=== PATIENT | male | born 1950 | race Caucasian/White ===

== ENCOUNTER 2022-06-22 22:35 | Inpatient (IN) | payer OTHER ==
[~2022-06-22] VITALS: Ht 167.6 cm; Wt 68.0 kg
[2022-06-22] MEDS ORDERED: ALBUTEROL SULFATE 2.5 MG/3 ML NEBU NEB ONE (22:45)
[2022-06-22] MEDS ORDERED: IPRATROPIUM BROMIDE 0.5 MG/2.5 ML NEBU NEB ONE (22:45)
[2022-06-22] MEDS ORDERED: methylPREDNISolone SOD SUCC 125 MG/2 ML VIAL IV ONE (22:45)
[2022-06-22] MEDS ORDERED: methylPREDNISolone SOD SUCC 125 MG/2 ML VIAL ONE (22:47)
[2022-06-22] MEDS ORDERED: ALBUTEROL SULFATE 2.5 MG/3 ML NEBU ONE ×2 (22:49→23:27)
[2022-06-22] MEDS ORDERED: IPRATROPIUM BROMIDE 0.5 MG/2.5 ML NEBU ONE (22:49)
[2022-06-22] MEDS ORDERED: LOSA100T31 PO (22:56)
[2022-06-22] MEDS ORDERED: ACET-2154 PO (22:56)
[2022-06-22] MEDS ORDERED: FURO40TA5 PO (22:56)
[2022-06-22] MEDS ORDERED: MONT10TA33 PO (22:56)
[2022-06-22] MEDS ORDERED: FLUT16SP16 NS (22:56)
[2022-06-22] MEDS ORDERED: AMLO5TAB4 PO (22:56)
[2022-06-22 23:04] LABS: HEMATOCRIT 39.2 % (36.7-47.1); MEAN CORPUSCULAR HEMOGLOBIN 25.6 uug (23.8-33.4); MEAN CORPUSCULAR VOLUME 81.1 fL (73.0-96.2); PLATELET COUNT (AUTO) 290 K/uL (152-348)
[2022-06-22 23:14] LABS: CARBON DIOXIDE 28 mmol/L (21-32); CHLORIDE 107 mmol/L (98-107); CREATININE 1.1 mg/dL (0.6-1.3); GLUCOSE 100 mg/dL (74-106); POTASSIUM 3.9 mmol/L (3.5-5.1); UREA NITROGEN, BLOOD 25 mg/dL (7-18)
[2022-06-23] MEDS ORDERED: AZITHROMYCIN 500MG/ D5W 250ML IVPB **ER PYXIS ONLY IV ONE (00:13)
[2022-06-23] MEDS ORDERED: CEFTRIAXONE /D5W 50ML IVPB **ER PYXIS IV ONE (00:13)
[2022-06-23] MEDS ORDERED: CEFTRIAXONE 1 G in IV DEXTROSE 5% 50 ML IV ONE (00:15)
[2022-06-23] MEDS ORDERED: AZITHROMYCIN IV 500 MG in IV DEXTROSE 5% 250 ML IV ONE (00:15)
[2022-06-23] MEDS ORDERED: ALBUTEROL SULFATE 2.5 MG/3 ML NEBU NEB ONE (01:30)
[2022-06-23] MEDS ORDERED: ACETAMINOPHEN 325 MG TABLET-SA PATIENTS-PAIN ONLY PO PRN (09:15)
[2022-06-23] MEDS ORDERED: HYDROCODONE/APAP 5-325MG TABLET PO PRN (09:30)
[2022-06-23] MEDS ORDERED: ACETAMINOPHEN 325 MG TABLET PO PRN (09:30)
[2022-06-23] MEDS ORDERED: ONDANSETRON 4 MG/2 ML VIAL IV PRN (09:30)
[2022-06-23] MEDS ORDERED: IPRATROPIUM BROMIDE 0.5 MG/2.5 ML NEBU NEB PRN (09:30)
[2022-06-23] MEDS ORDERED: ALBUTEROL SULFATE 2.5 MG/3 ML NEBU NEB PRN (09:30)
[2022-06-23] MEDS: levoFLOXacin 500 MG/D5W 500 MG in PREMIXED 1 EACH IV SCH (10:49)
[2022-06-23 11:04] VITALS: BP 128/62
[2022-06-23] MEDS: methylPREDNISolone SOD SUCC 40 MG/ML VIAL IV SCH ×2 (13:12→21:48)
[2022-06-23 15:40] VITALS: BP 124/60
[2022-06-23 20:22] VITALS: BP 123/66
[2022-06-23] MEDS: DOCUSATE SODIUM 100 MG CAPSULE PO SCH (21:00)
[2022-06-23] MEDS: MONTELUKAST SODIUM 10 MG TABLET PO SCH (21:48)
[2022-06-23] MEDS: GUAIFENESIN/CODEINE 5 ML LIQUID UDC PO PRN (22:31)
[2022-06-24 00:02] VITALS: BP 143/72
[2022-06-24 04:20] VITALS: BP 136/72
[2022-06-24] MEDS: methylPREDNISolone SOD SUCC 40 MG/ML VIAL IV SCH ×3 (05:32→21:17)
[2022-06-24] MEDS: PANTOPRAZOLE SODIUM 40 MG TABLET.DR PO SCH (06:02)
[2022-06-24 08:08] LABS: HEMATOCRIT 34.9 % (36.7-47.1); MEAN CORPUSCULAR HEMOGLOBIN 25.8 uug (23.8-33.4); PLATELET COUNT (AUTO) 264 K/uL (152-348)
[2022-06-24 08:31] LABS: THYROID STIMULATING HORMONE 1.03 mIU/mL (0.358-3.740)
[2022-06-24 08:39] LABS: BILIRUBIN,TOTAL 0.3 mg/dL (0.2-1.0); CREATININE 0.9 mg/dL (0.6-1.3); MAGNESIUM 2.1 mg/dL (1.8-2.4); PHOSPHOROUS 4.1 mg/dL (2.5-4.9); TOTAL PROTEIN, SERUM 6.3 g/dL (6.4-8.2)
[2022-06-24] MEDS: FLUTICASONE PROP NASAL SPRAY 16 GM BOTTLE NS SCH (08:44)
[2022-06-24] MEDS: AMLODIPINE 5 MG TABLET PO SCH (08:44)
[2022-06-24] MEDS: FUROSEMIDE 40 MG TABLET PO SCH (08:44)
[2022-06-24] MEDS: GUAIFENESIN/CODEINE 5 ML LIQUID UDC PO PRN ×2 (08:45→21:18)
[2022-06-24] MEDS: levoFLOXacin 500 MG/D5W 500 MG in PREMIXED 1 EACH IV SCH (09:53)
[2022-06-24 11:09] VITALS: BP 135/70
[2022-06-24 15:22] VITALS: BP 122/69
[2022-06-24] MEDS: DOCUSATE SODIUM 100 MG CAPSULE PO SCH (20:25)
[2022-06-24] MEDS: MONTELUKAST SODIUM 10 MG TABLET PO SCH (20:26)
[2022-06-24 20:30] VITALS: BP 130/60
[2022-06-25] VITALS: BP 152/81
[2022-06-25 05:07] VITALS: BP 144/67
[2022-06-25] MEDS: PANTOPRAZOLE SODIUM 40 MG TABLET.DR PO SCH (06:27)
[2022-06-25] MEDS: methylPREDNISolone SOD SUCC 40 MG/ML VIAL IV SCH ×2 (06:27→14:19)
[2022-06-25] MEDS: FUROSEMIDE 40 MG TABLET PO SCH (08:42)
[2022-06-25] MEDS: FLUTICASONE PROP NASAL SPRAY 16 GM BOTTLE NS SCH (08:43)
[2022-06-25] MEDS: AMLODIPINE 5 MG TABLET PO SCH (08:43)
[2022-06-25] MEDS: levoFLOXacin 500 MG/D5W 500 MG in PREMIXED 1 EACH IV SCH (09:10)
[2022-06-25 11:15] VITALS: BP 130/72
[2022-06-25] MEDS ORDERED: LEVO500T90 PO (13:08)
[2022-06-25] MEDS ORDERED: LOSA50TA39 PO (13:08)
[2022-06-25] MEDS ORDERED: FLUT1BLS IH (13:08)
[2022-06-25] MEDS ORDERED: ALBU8.5H8 INH (13:08)
[2022-06-25] MEDS ORDERED: METH4TAB3 PO (13:08)
[2022-06-25 15:18] VITALS: BP 112/59
[2022-06-26] MEDS ORDERED: levoFLOXacin 500 MG TABLET PO SCH (10:00)
== END 2022-06-25 19:12 | DRG 202 ==
LOC: ER 22:39 → TELE3 06-23 08:00 → MEDSURG3 06-25 11:01
PROVIDERS: ADMIT Internal Medicine; ATTEND Internal Medicine
DX: J20.8 Acute bronchitis due to other specified organisms (principal); J44.0 Chronic obstructive pulmonary disease with (acute) lower respiratory infection; J44.1 Chronic obstructive pulmonary disease with (acute) exacerbation; B96.89 Other specified bacterial agents as the cause of diseases classified elsewhere; Z77.22 Contact with and (suspected) exposure to environmental tobacco smoke (acute) (chronic); I10 Essential (primary) hypertension; Z79.899 Other long term (current) drug therapy; M19.072 Primary osteoarthritis, left ankle and foot; Z20.822 Contact with and (suspected) exposure to COVID-19; M19.071 Primary osteoarthritis, right ankle and foot
CPT/HCPCS: 36415; 71045; 83605; 83735; 84100; 84443; 84484; 85025; 87040; 93005; 93307; 94640; A4663; G0378; J0456; J0696; J1956; J2920; J2930; J3535; J3590